=== PATIENT | female | born 1990 | race African-American/Black ===

== ENCOUNTER 2019-12-16 16:36 | Emergency (ER) | payer OTHER ==
[~2019-12-16] VITALS: Ht 157.5 cm; Wt 49.9 kg
[2019-12-16 16:42] VITALS: BP 116/71
--- NOTE | 2019-12-16 16:56 | NUR ---
Medically cleared for booking -Patient discharged to [facility] in custody in stable condition. Written and verbal after care instructions given. Patient verbalizes understanding of instruction.
== END 2019-12-16 16:57 ==
LOC: ER 16:50
DX: S09.8XXA Other specified injuries of head, initial encounter (principal); Z02.89 Encounter for other administrative examinations; W22.8XXA Striking against or struck by other objects, initial encounter; Y93.89 Activity, other specified; Y92.89 Other specified places as the place of occurrence of the external cause; Y99.8 Other external cause status